=== PATIENT | female | born 1990 | race Caucasian/White ===

== ENCOUNTER 2020-04-16 05:11 | Inpatient (IN) ==
[2020-04-16] MEDS ORDERED: Penicillin G Potassium 5,000,000 UNIT in 0.9 % Sodium Chloride Mini Bag 100 ML IVPB ONE (05:32)
[2020-04-16] MEDS ORDERED: Ondansetron 4 MG/2 ML VIAL IVP PRN (05:33)
[2020-04-16] MEDS ORDERED: *HR* Nalbuphine 10 MG/ML AMPUL IV PRN (05:33)
[2020-04-16] MEDS ORDERED: Famotidine 20 MG/2 ML VIAL IVP PRN (05:33)
[2020-04-16] MEDS ORDERED: Azithromycin 500 MG in 0.9 % Sodium Chloride 250 ML IVPB ONE (05:33)
[2020-04-16] MEDS ORDERED: Lidocaine 1% 20 ML MDV ID PRN (05:33)
[2020-04-16] MEDS ORDERED: Metoclopramide 10 MG/2 ML VIAL IVP PRN (05:33)
[2020-04-16] MEDS ORDERED: Naloxone 0.4 MG/ML INJ IVP PRN (05:33)
[2020-04-16] MEDS ORDERED: Oxytocin 20 units/ LR 1000 mL 20 UNIT/1,000 ML BAG IVC ONE (05:35)
[2020-04-16] MEDS ORDERED: Ringers Solution, Lactated 1,000 ML ONE ×2 (05:35→05:36)
[2020-04-16] MEDS ORDERED: Ringers Solution, Lactated 1,000 ML IVC SCH (05:45)
[2020-04-16 06:08] LABS: Basophils % 0.3 %; Eosinophils # 0.1 K/mcL (0.0-0.6); Eosinophils % 0.5 %; Hematocrit 33.6 % (35.3-44.9); Hemoglobin 11.2 g/dL (11.5-15.4); Immature Granulocytes % 0.4 % (0-4); Lymphocytes # 1.5 K/mcL (0.6-4.6); Lymphocytes % 13.2 %; Mean Corpuscular HGB Conc 33.3 g/dL (31.6-35.5); Mean Corpuscular Hemoglobin 28.9 pg (28.0-33.3); Mean Corpuscular Volume 86.8 fL (83.0-100.0); Mean Platelet Volume 9.6 fL (9.4-12.4); Monocytes # 0.5 K/mcL (0.0-1.3); Neutrophils # 9.3 K/mcL (1.6-8.9); Platelet Count 152 K/mcL (140-400); Red Blood Count 3.87 M/mcL (3.82-4.97); Red Cell Distribution Width 13.3 % (11.5-14.5); Segmented Neutrophils % 81.6 %; White Blood Count 11.4 K/mcL (4.3-11.1)
[2020-04-16] MEDS ORDERED: Bupivacaine-MPF 0.25% 10 ML VIAL ONE (06:16)
[2020-04-16] MEDS ORDERED: *HR* FentaNYL (PF) 100 MCG/2 ML VIAL ONE (06:16)
[2020-04-16] MEDS ORDERED: EPHEDrine 50 MG/ML VIAL IVP PRN (06:45)
[2020-04-16] MEDS ORDERED: Epidural Premix (fent/bupiv) 110 ML EP SCH (06:45)
[2020-04-16 08:56] LABS: Adenovirus Not Detected (Not Detect); Bordetella Pertussis Not Detected (Not Detect); Chlamydophila pneumoniae Not Detected (Not Detect); Coronavirus 229E Not Detected (Not Detect); Coronavirus HKU1 Not Detected (Not Detect); Coronavirus NL63 Not Detected (Not Detect); Coronavirus OC43 Not Detected (Not Detect); Human Metapneumovirus Not Detected (Not Detect); Human Rhinovirus/Enterovirus Not Detected (Not Detect); Influenza A Subtype 2009 H1 Not Detected (Not Detect); Influenza B Not Detected (Not Detect); Mycoplasma pneumoniae Not Detected (Not Detect); Parainfluenza Virus 1 Not Detected (Not Detect); Parainfluenza Virus 2 Not Detected (Not Detect); Parainfluenza Virus 3 Not Detected (Not Detect); Parainfluenza Virus 4 Not Detected (Not Detect); Respiratory Syncytial Virus Not Detected (Not Detect); SARS-CoV-2 Not Detected (Not Detect)
[2020-04-16] MEDS ORDERED: Penicillin G Potassium 2,500,000 UNIT/105 ML MLS IVPB SCH (10:00)
[2020-04-16] MEDS ORDERED: Ibuprofen 600 MG TABLET PO PRN (12:54)
[2020-04-16] MEDS ORDERED: Lanolin 7 G OINT...G. TP PRN (12:54)
[2020-04-16] MEDS ORDERED: Benzocaine/Menthol 56 GM AEROSOL SPRAY TP PRN (12:54)
[2020-04-16] MEDS ORDERED: Acetaminophen 325 MG TABLET PO PRN (12:54)
[2020-04-16] MEDS ORDERED: Oxytocin 20 units/ LR 1000 mL 20 UNIT/1,000 ML BAG IVC SCH (13:00)
[2020-04-16] MEDS ORDERED: miSOPROStoL 100 MCG TABLET VG ONE (13:19)
[2020-04-17 05:34] LABS: Basophils % 0.2 %; Eosinophils # 0.1 K/mcL (0.0-0.6); Eosinophils % 0.8 %; Hematocrit 25.9 % (35.3-44.9); Hemoglobin 8.6 g/dL (11.5-15.4); Immature Granulocytes % 0.4 % (0-4); Lymphocytes # 2.8 K/mcL (0.6-4.6); Lymphocytes % 26.2 %; Mean Corpuscular HGB Conc 33.2 g/dL (31.6-35.5); Mean Corpuscular Hemoglobin 29.3 pg (28.0-33.3); Mean Corpuscular Volume 88.1 fL (83.0-100.0); Mean Platelet Volume 9.4 fL (9.4-12.4); Monocytes # 0.6 K/mcL (0.0-1.3); Monocytes % 6.1 %; Platelet Count 128 K/mcL (140-400); Red Blood Count 2.94 M/mcL (3.82-4.97); Red Cell Distribution Width 13.6 % (11.5-14.5); Segmented Neutrophils % 66.3 %; White Blood Count 10.6 K/mcL (4.3-11.1)
[2020-04-17 08:33] VITALS: BP 132/74
[2020-04-17] MEDS ORDERED: Prenatal Vit/FA 1 EACH TABLET PO SCH (09:00)
== END 2020-04-17 13:20 | disposition home or self-care (01) | DRG 807 ==
LOC: 1NENULAB → OBSVTOIN 05:11 → 1NENULAB 05:27 → 1NENUOBS 12:16
PROVIDERS: ADMIT Obstetrics & Gynecology; ATTEND Obstetrics & Gynecology

== ENCOUNTER 2022-01-03 08:49 | Inpatient (IN) ==
[2022-01-03] MEDS ORDERED: Morphine Sulfate 2 MG/ML SYRINGE SQ ONE (08:58)
[2022-01-03] MEDS ORDERED: Oxytocin 30 UNIT/503 ML BAG IVC ONE (09:10)
[2022-01-03] MEDS ORDERED: *HR* HYDROmorphone (PF) 1 MG/ML SYRINGE IM ONE (09:13)
[2022-01-03] MEDS ORDERED: *HR* HYDROmorphone (PF) 1 MG/ML SYRINGE ONE (09:14)
[2022-01-03] MEDS ORDERED: Lidocaine -MPF 1% 5 ML AMPUL ONE (09:22)
[2022-01-03] MEDS ORDERED: *HR* Midazolam HCl 2 MG/2 ML VIAL ONE (09:37)
[2022-01-03] MEDS ORDERED: *HR* FentaNYL (PF) 250 MCG/5 ML VIAL ONE (09:37)
[2022-01-03] MEDS ORDERED: *HR* Propofol 200 MG/20 ML VIAL IVP ONE (09:38)
[2022-01-03] MEDS ORDERED: Lidocaine -MPF 2% 2 ML VIAL ONE (09:38)
[2022-01-03] MEDS ORDERED: Tranexamic Acid 1,000 MG/100ML 1,000 MG/100 ML PIGGYBACK IVPB ONE (09:38)
[2022-01-03] MEDS ORDERED: Ringers Solution, Lactated 1,000 ML ONE (09:43)
[2022-01-03] MEDS ORDERED: Ringers Solution, Lactated 1,000 ML IVC SCH (11:30)
[2022-01-03 15:04] LABS: Amphetamine Screen,Urine Negative ng/mL (Cutoff=1000); Barbiturate Screen,Urine Negative ng/mL (Cutoff=200); Benzodiazepines Screen,Urine Positive ng/mL (Cutoff=200); Cannabinoid Screen,Urine Negative ng/mL (Cutoff = 50); Cocaine Screen,Urine Negative ng/mL (Cutoff= 300); Opiate Screen,Urine Positive ng/mL (Cutoff=300); Phencyclidine Screen,Urine Negative ng/mL (Cutoff=25)
[2022-01-03] MEDS ORDERED: Measles/Mumps/Rubella Vacc 0.5 ML VIAL SQ PRN (16:17)
[2022-01-03] MEDS ORDERED: Oxytocin 30 UNIT/503 ML BAG IVC SCH (16:17)
[2022-01-03] MEDS ORDERED: Rho Immune Globulin 1,500 UNIT SYRINGE IM PRN (16:17)
[2022-01-03] MEDS ORDERED: Ondansetron ODT 4 MG TAB.RAPDIS SL PRN (16:17)
[2022-01-03] MEDS ORDERED: Lanolin 7 G OINT...G. TP PRN (16:17)
[2022-01-03] MEDS ORDERED: Benzocaine/Menthol 56 GM AEROSOL SPRAY TP PRN (16:17)
[2022-01-03] MEDS ORDERED: *HR* OxyCODONE Immed Rel 5 MG TABLET PO PRN (16:17)
[2022-01-03] MEDS: Ibuprofen 600 MG TABLET PO SCH (17:04)
[2022-01-03] MEDS: Acetaminophen 325 MG TABLET PO SCH (17:04)
[2022-01-04 05:39] LABS: Basophils % 0.3 %; Eosinophils # 0.1 K/mcL (0.0-0.6); Eosinophils % 0.6 %; Hematocrit 26.1 % (35.3-44.9); Hemoglobin 8.5 g/dL (11.5-15.4); Immature Granulocytes % 0.7 % (0-4); Lymphocytes # 2.4 K/mcL (0.6-4.6); Lymphocytes % 24.6 %; Mean Corpuscular HGB Conc 32.6 g/dL (31.6-35.5); Mean Corpuscular Volume 85.9 fL (83.0-100.0); Mean Platelet Volume 9.9 fL (9.4-12.4); Monocytes # 0.6 K/mcL (0.0-1.3); Monocytes % 6.1 %; Neutrophils # 6.5 K/mcL (1.6-8.9); Platelet Count 138 K/mcL (140-400); Red Blood Count 3.04 M/mcL (3.82-4.97); Red Cell Distribution Width 13.9 % (11.5-14.5); Segmented Neutrophils % 67.7 %; White Blood Count 9.6 K/mcL (4.3-11.1)
[2022-01-04] MEDS ORDERED: [UNRECOGNIZED DRUG - OTHER] PO SCH (09:00)
[2022-01-04] MEDS ORDERED: OMEGA3 PO SCH (09:00)
[2022-01-04] MEDS ORDERED: IRON PO SCH (09:00)
[2022-01-04] MEDS ORDERED: FOLIC PO SCH (09:00)
[2022-01-04] MEDS ORDERED: PRENATAL PO SCH (09:00)
[2022-01-04] MEDS: Ibuprofen 600 MG TABLET PO SCH ×2 (10:34→16:19)
[2022-01-04] MEDS: Acetaminophen 325 MG TABLET PO SCH ×2 (10:35→16:20)
[2022-01-04] MEDS: Prenatal Vit/FA 1 EACH TABLET PO SCH (10:35)
[2022-01-04 21:24] VITALS: O2SAT 98
[2022-01-05 05:00] LABS: Basophils % 0.4 %; Eosinophils # 0.1 K/mcL (0.0-0.6); Eosinophils % 1.7 %; Hematocrit 26.3 % (35.3-44.9); Hemoglobin 8.5 g/dL (11.5-15.4); Immature Granulocytes % 0.8 % (0-4); Lymphocytes # 2.4 K/mcL (0.6-4.6); Lymphocytes % 28.3 %; Mean Corpuscular HGB Conc 32.3 g/dL (31.6-35.5); Mean Corpuscular Hemoglobin 28.2 pg (28.0-33.3); Mean Corpuscular Volume 87.4 fL (83.0-100.0); Mean Platelet Volume 9.1 fL (9.4-12.4); Monocytes # 0.5 K/mcL (0.0-1.3); Monocytes % 5.4 %; Neutrophils # 5.3 K/mcL (1.6-8.9); Platelet Count 140 K/mcL (140-400); Red Blood Count 3.01 M/mcL (3.82-4.97); Segmented Neutrophils % 63.4 %; White Blood Count 8.3 K/mcL (4.3-11.1)
[2022-01-05] MEDS: Ibuprofen 600 MG TABLET PO SCH ×3 (07:52→08:54)
[2022-01-05] MEDS: Acetaminophen 325 MG TABLET PO SCH ×3 (07:52→08:54)
[2022-01-05] MEDS: Prenatal Vit/FA 1 EACH TABLET PO SCH (08:46)
[2022-01-05 09:09] VITALS: BP 107/74; PULSE 98; TEMP 98.3
== END 2022-01-05 11:16 | disposition home or self-care (01) | DRG 797 ==
LOC: 1NENULAB 08:49 → 1NENUOBS 12:15
PROVIDERS: ADMIT Student in an Organized Health Care Education/Training Program; ATTEND Student in an Organized Health Care Education/Training Program